=== PATIENT | female | born 2005 | race Caucasian/White ===

== ENCOUNTER 2023-04-14 14:39 | Emergency (ER) | payer OTHER ==
[~2023-04-14] VITALS: Ht 154.9 cm; Wt 51.8 kg
[2023-04-14 15:30] LABS: URINE PREG TEST NEGATIVE (NEGATIVE)
[2023-04-14] MEDS ORDERED: PYRI1TAB5 PO (15:43)
[2023-04-14] MEDS ORDERED: CEFD300C41 PO (15:43)
[2023-04-14] MEDS ORDERED: CEFDINIR 300 MG CAP (OMNICEF) PO ONE (15:45)
[2023-04-14 15:53] VITALS: BP 127/61
== END 2023-04-14 15:57 | disposition home or self-care (01) ==
LOC: M ED 14:39
DX: N39.0 Urinary tract infection, site not specified (principal); Z91.010 Allergy to peanuts

== ENCOUNTER 2023-12-13 16:36 | Emergency (ER) | payer OTHER ==
[~2023-12-13] VITALS: Ht 154.9 cm; Wt 54.8 kg
[~2023-12-13 16:36] MED LIST: CEFD1CAP9 PO; IBUP-1114 PO; MACR100C43 PO; PYRI1TAB5 PO
[2023-12-13 18:44] LABS: BASO # 0.1 10^3/uL (0.0-0.2); BASO % 0.6 % (0.0-1.0); EOS # 0.1 10^3/uL (0.0-0.5); EOS % 1.1 % (0.0-3.0); HEMATOCRIT 40.2 % (36.0-47.0); HEMOGLOBIN 13.8 g/dl (12.0-15.5); LYMPH # 2.3 10^3/uL (1.5-5.0); LYMPH % 28.3 % (24.0-44.0); MEAN CORPUSCULAR HEMOGLOBIN 29.9 pg (27.0-33.0); MEAN CORPUSCULAR HGB CONC 34.3 g/dl (32.0-36.5); MEAN CORPUSCULAR VOLUME 87.2 fl (80.0-96.0); MONO # 0.8 10^3/uL (0.0-0.8); MONO % 9.4 % (2.0-8.0); NEUTROPHILS # 4.9 10^3/uL (1.5-8.5); NEUTROPHILS % 60.4 % (36.0-66.0); PLATELET COUNT, AUTOMATED 213 10^3/uL (150-450); RED BLOOD COUNT 4.61 10^6/uL (4.00-5.40); WHITE BLOOD COUNT 8.1 10^3/uL (4.0-10.0)
[2023-12-13 19:09] LABS: LIPASE 35 U/L (12-53)
[2023-12-13 19:11] LABS: ALBUMIN 3.9 G/DL (3.2-5.2); ALKALINE PHOSPHATASE 63 U/L (46-116); ALT/SGPT 30 U/L (7.0-40); AMYLASE 159 U/L (30-118); AST/SGOT 24 U/L (<34); BILIRUBIN,DIRECT < 0.1 MG/DL (<0.4); BILIRUBIN,TOTAL 0.3 MG/DL (0.3-1.2); TOTAL PROTEIN 7.2 G/DL (5.7-8.2)
[2023-12-13 19:15] LABS: HCG, SERUM QUALITATIVE NEGATIVE (NEGATIVE)
[2023-12-13] MEDS ORDERED: KETO10TAB PO (19:52)
[2023-12-13] MEDS ORDERED: KETOROLAC 30 MG/ML 1ML VIAL IV ONE (19:55)
[2023-12-13 20:00] VITALS: BP 112/59; TEMP 98.6; O2SAT 98
== END 2023-12-13 20:12 | disposition home or self-care (01) ==
LOC: M ED 16:36
DX: N83.201 Unspecified ovarian cyst, right side (principal); Z88.7 Allergy status to serum and vaccine; Z91.010 Allergy to peanuts
CPT/HCPCS: 76830; 76856; 80047; 80076; 81001; 82150; 83690; 84703; 85025; 93976; 96374; 99283; J1885

== ENCOUNTER 2024-01-15 09:45 | Emergency (ER) | payer OTHER ==
[~2024-01-15] VITALS: Ht 157.5 cm; Wt 52.4 kg
[~2024-01-15 09:45] MED LIST changes: +KETO10TAB PO
[2024-01-15] MEDS ORDERED: HYDR-3363 PO (09:56)
[2024-01-15] MEDS: NS 1,000 ML IV ONE (12:04)
[2024-01-15] MEDS: ACETAMINOPHEN 500 MG TAB PO ONE (12:05)
[2024-01-15 12:34] LABS: BASO % 0.4 % (0.0-1.0); EOS % 0.3 % (0.0-3.0); HEMATOCRIT 42.7 % (36.0-47.0); HEMOGLOBIN 14.9 g/dl (12.0-15.5); LYMPH # 1.5 10^3/uL (1.5-5.0); LYMPH % 20.8 % (24.0-44.0); MEAN CORPUSCULAR HEMOGLOBIN 29.9 pg (27.0-33.0); MEAN CORPUSCULAR HGB CONC 34.9 g/dl (32.0-36.5); MEAN CORPUSCULAR VOLUME 85.6 fl (80.0-96.0); MONO # 0.6 10^3/uL (0.0-0.8); MONO % 7.6 % (2.0-8.0); NEUTROPHILS # 5.1 10^3/uL (1.5-8.5); NEUTROPHILS % 70.8 % (36.0-66.0); PLATELET COUNT, AUTOMATED 206 10^3/uL (150-450); RED BLOOD COUNT 4.99 10^6/uL (4.00-5.40); WHITE BLOOD COUNT 7.3 10^3/uL (4.0-10.0)
[2024-01-15 12:57] LABS: HCG, SERUM QUANTITATIVE < 2.6 MIU/ML (<4.2)
[2024-01-15 12:58] LABS: BLOOD UREA NITROGEN 13 MG/DL (9-23); CARBON DIOXIDE LEVEL 29 MMOL/L (20-31); CHLORIDE LEVEL 106 MMOL/L (98-107); CREATININE FOR GFR 0.67 MG/DL (0.55-1.30); GLUCOSE, FASTING 88 MG/DL (60-100); POTASSIUM SERUM 3.9 MMOL/L (3.5-5.1); SODIUM LEVEL 139 MMOL/L (136-145)
[2024-01-15 13:50] VITALS: BP 125/62; TEMP 97.1; O2SAT 100
== END 2024-01-15 14:22 | disposition left against medical advice (07) ==
LOC: M ED 09:45
DX: R10.2 Pelvic and perineal pain (principal); N93.9 Abnormal uterine and vaginal bleeding, unspecified

== ENCOUNTER 2024-09-09 07:06 | Day surgery (SDC) | payer OTHER ==
[~2024-09-09] VITALS: Ht 157.5 cm; Wt 57.2 kg
[~2024-09-09 07:06] MED LIST changes: +ACETAMINOPHEN 1000MG 100ML IV BAG As Ordered ONE; +DOXY100T PO; +HYDR-3363 PO; +LIDOCAINE 2% 100MG/5ML SDV (FOR ANES.) As Ordered ONE; +MIDAZOLAM INJ 2MG/2ML VIAL As Ordered ONE; +ONDANSETRON 4MG 2ML VIAL As Ordered ONE; +ROCURONIUM BROMIDE 50MG/5ML VIAL As Ordered ONE; +fentaNYL 100 MCG/2 ML INJECTION As Ordered ONE; +propofoL 200 MG/20 ML VIAL As Ordered ONE
[2024-09-09] MEDS ORDERED: VALA1TAB5 PO (07:32)
[2024-09-09] MEDS ORDERED: LR 1,000 ML IV SCH (07:35)
[2024-09-09] MEDS ORDERED: OXYC1TAB23 PO (08:23)
[2024-09-09] MEDS ORDERED: SUGAMMADEX SODIUM 500 MG/5 ML VIAL (BRIDION) As Ordered ONE (08:41)
[2024-09-09] MEDS ORDERED: dexmedeTOMIDine (4MCG/ML)200MCG/50ML BTL (PRECEDEX) As Ordered ONE (08:42)
[2024-09-09] MEDS ORDERED: HYDROmorphone HCL 2MG/ML 1ML VIAL As Ordered ONE (09:03)
[2024-09-09] MEDS ORDERED: MORPHINE 2 MG/ML 1ML VIAL IV PRN (11:20)
[2024-09-09] MEDS ORDERED: fentaNYL 100 MCG/2 ML INJECTION IV PRN (11:20)
[2024-09-09] MEDS ORDERED: oxyCODONE 5MG TAB PO PRN (11:20)
[2024-09-09] MEDS: ONDANSETRON 4MG 2ML VIAL IV PRN (11:32)
[2024-09-09 11:50] VITALS: BP 101/60; TEMP 96.9; O2SAT 97
== END 2024-09-09 11:53 | disposition home or self-care (01) ==
LOC: M SDC 07:06
PROVIDERS: ATTEND Otolaryngology
DX: J35.01 Chronic tonsillitis (principal); A42.89 Other forms of actinomycosis; Z91.010 Allergy to peanuts; Z88.7 Allergy status to serum and vaccine
CPT/HCPCS: 42826; 81025; 88302; J0131; J0665; J1100; J1171; J2250; J2405; J3010

== ENCOUNTER 2024-09-11 03:48 | Emergency (ER) | payer OTHER ==
[~2024-09-11] VITALS: Ht 157.5 cm; Wt 56.1 kg
[~2024-09-11 03:48] MED LIST changes: -ACETAMINOPHEN 1000MG 100ML IV BAG As Ordered ONE; -LIDOCAINE 2% 100MG/5ML SDV (FOR ANES.) As Ordered ONE; -MIDAZOLAM INJ 2MG/2ML VIAL As Ordered ONE; -ONDANSETRON 4MG 2ML VIAL As Ordered ONE; +OXYC1TAB23 PO; -ROCURONIUM BROMIDE 50MG/5ML VIAL As Ordered ONE; +VALA1TAB5 PO; -fentaNYL 100 MCG/2 ML INJECTION As Ordered ONE; -propofoL 200 MG/20 ML VIAL As Ordered ONE
[2024-09-11 03:52] VITALS: BP 127/60; TEMP 97.3; O2SAT 98
== END 2024-09-11 04:57 | disposition left against medical advice (07) ==
LOC: M ED 03:48
DX: Z53.21 Procedure and treatment not carried out due to patient leaving prior to being seen by health care provider (principal)

== ENCOUNTER 2025-10-12 09:57 | Emergency (ER) | payer OTHER ==
[~2025-10-12] VITALS: Ht 157.5 cm; Wt 71.9 kg
[2025-10-12] MEDS ORDERED: NAPR-837 PO (12:16)
[2025-10-12 12:20] VITALS: BP 122/68; TEMP 97; O2SAT 100
== END 2025-10-12 12:22 | disposition home or self-care (01) ==
LOC: M ED 09:57
DX: M25.551 Pain in right hip (principal); F41.9 Anxiety disorder, unspecified; Z88.7 Allergy status to serum and vaccine; Z91.010 Allergy to peanuts; Z79.2 Long term (current) use of antibiotics; Z79.899 Other long term (current) drug therapy